=== PATIENT | female | born 1965 | race Caucasian/White ===

== ENCOUNTER 2020-12-03 08:25 | Outpatient (CLI) | payer BC | END 2020-12-03 08:26 | disposition home or self-care (01) | LOC: CSHULT 08:25 → EDSEX 08:45 | PROVIDERS: ATTEND Family Medicine | DX: R74.01 Elevation of levels of liver transaminase levels (principal) | CPT/HCPCS: 93975 ==

== ENCOUNTER 2022-05-09 14:10 | Outpatient (CLI) | payer BC | END 2022-05-09 14:11 | disposition home or self-care (01) | LOC: CSHMAMMO 14:10 | PROVIDERS: ATTEND Family Medicine | DX: Z12.31 Encounter for screening mammogram for malignant neoplasm of breast (principal); Z80.3 Family history of malignant neoplasm of breast; Z91.89 Other specified personal risk factors, not elsewhere classified | CPT/HCPCS: 77063; 77067 ==

== ENCOUNTER 2023-06-04 14:44 | Outpatient (CLI) | payer BC | END 2023-06-04 14:45 | disposition home or self-care (01) | LOC: CSHMAMMO 14:44 | PROVIDERS: ATTEND Student in an Organized Health Care Education/Training Program | DX: Z12.31 Encounter for screening mammogram for malignant neoplasm of breast (principal); Z80.3 Family history of malignant neoplasm of breast; Z91.89 Other specified personal risk factors, not elsewhere classified | CPT/HCPCS: 77063; 77067 ==